=== PATIENT | male | born 2000 | race American Indian/Alaskan Native ===

== ENCOUNTER 2021-11-04 17:19 | Emergency (ER) | payer OTHER ==
[2021-11-04 17:44] VITALS: BP 125/69
[2021-11-04] MEDS ORDERED: IBUPROFEN 800 MG TAB PO ONE (18:00)
--- NOTE | 2021-11-04 18:08 | Emergency Department Report ---
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 Pain described as sharp exacerbated by movement and deep inspiration. There is no fevers no chills no nausea no vomiting no shortness of breath no wheezing or stridor. Patient does not have other history no cardiac history no hypertension. Patient denies smoking. Patient rates symptoms at 5/10 at this time. MD Complaint: chest pain Severity scale (0 -10): 4 - Related Data Allergies Allergy/AdvReac Type Severity Reaction Status Date / Time No Known Allergies Allergy Unverified 11/04/21 17:42 ED Review of Systems ROS: Stated complaint: CHEST PAIN Other details as noted in HPI ED Physical Exam - General Limitations: No Limitations ED Course Vital Signs 11/04/21 17:42 Temperature 98.4 F Pulse Rate 51 L Respiratory 18 Rate Blood Pressure 125/69 [Right] O2 Sat by Pulse 98 Oximetry Critical care attestation.: If time is entered above; I have spent that time in minutes in the direct care of this critically ill patient, excluding procedure time. ED Disposition Condition: Stable
--- NOTE | 2021-11-04 18:09 | Emergency Department Report ---
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 Pain described as sharp exacerbated by movement and deep inspiration. There is no fevers no chills no nausea no vomiting no shortness of breath no wheezing or stridor. Patient does not have other history no cardiac history no hypertension. Patient denies smoking. Patient rates symptoms at 5/10 at this time. Severity scale (0 -10): 4 - Related Data Previous Rx's Medication Instructions Recorded Last Taken Type Ibuprofen [Motrin 800 MG tab] 800 mg PO Q8HR PRN #30 tablet 11/04/21 Unknown Rx Allergies Allergy/AdvReac Type Severity Reaction Status Date / Time No Known Allergies Allergy Unverified 11/04/21 17:42 ED Review of Systems ROS: Stated complaint: CHEST PAIN Other details as noted in HPI Constitutional: denies: chills, fever, malaise Eyes: denies: eye pain, eye discharge, vision change ENT: as per HPI Respiratory: denies: cough, shortness of breath, wheezing Cardiovascular: chest pain. denies: palpitations, dyspnea on exertion, syncope, paroxysmal nocturnal dyspnea Endocrine: no symptoms reported Gastrointestinal: denies: abdominal pain, nausea, vomiting, diarrhea Genitourinary: denies: urgency, dysuria Musculoskeletal: denies: back pain, joint swelling, arthralgia Skin: denies: rash, lesions Neurological: denies: headache, weakness, paresthesias, vertigo Psychiatric: denies: anxiety, depression Hematological/Lymphatic: denies: easy bleeding, easy bruising ED Past Medical Hx - Medications Home Medications: Home Medications Medication Instructions Recorded Confirmed Last Taken Type Ibuprofen [Motrin 800 MG tab] 800 mg PO Q8HR PRN #30 tablet 11/04/21 Unknown Rx ED Physical Exam - General Limitations: No Limitations General appearance: alert, in no apparent distress - Head Head exam: Present: normal inspection - Eye Eye exam: Present: PERRL, EOMI. Absent: conjunctival injection, nystagmus Pupils: Present: normal accommodation - ENT ENT exam: Present: mucous membranes moist - Neck Neck exam: Present: normal inspection, full ROM. Absent: tenderness, lymphadenopathy - Respiratory Respiratory exam: Present: normal lung sounds bilaterally, chest wall tenderness (Left anterior lateral reproducible no crepitus no ecchymosis no step-off). Absent: respiratory distress, wheezes, rales, rhonchi, stridor - Cardiovascular Cardiovascular Exam: Present: regular rate, normal rhythm, normal heart sounds. Absent: systolic murmur, diastolic murmur, rubs, gallop - GI/Abdominal GI/Abdominal exam: Present: soft, normal bowel sounds. Absent: distended, tenderness, guarding, rebound, rigid, bruit, hernia - Rectal Rectal exam: Present: deferred - Extremities Exam Extremities exam: Present: normal inspection, full ROM, normal capillary refill - Back Exam Back exam: Present: normal inspection, full ROM. Absent: CVA tenderness (R), CVA tenderness (L) - Neurological Exam Neurological exam: Present: alert, oriented X3, CN II-XII intact, normal gait - Psychiatric Psychiatric exam: Present: normal affect, normal mood - Skin Skin exam: Present: warm, dry, intact, normal color. Absent: rash ED Course Vital Signs 11/04/21 17:42 Temperature 98.4 F Pulse Rate 51 L Respiratory 18 Rate Blood Pressure 125/69 [Right] O2 Sat by Pulse 98 Oximetry ED Medical Decision Making - EKG Data EKG shows normal: sinus rhythm, axis, intervals, QRS complexes Rate: normal - EKG Data When compared to previous EKG there are: previous EKG unavailable Interpretation: nonspecific ST-T wave jami (Sinus Bradycardia, mild ST elevation suggesing pericarditis, NSTEMI interp by ed attending.) - Radiology Data Radiology results: report reviewed, image reviewed CHEST 2 VIEWS INDICATION / CLINICAL INFORMATION: chest pain. FINDINGS: SUPPORT DEVICES: None. HEART / MEDIASTINUM: No significant abnormality. LUNGS / PLEURA: No significant pulmonary or pleural abnormality. No pneumothorax. ADDITIONAL FINDINGS: No significant additional findings. IMPRESSION: 1. No acute findings. Signer Name: Marco Tavarez MD Signed: 11/04/2021 6:34 PM Workstation Name: [id number] Transcribed By: Dictated By: Marco Tavarez MD Electronically Authenticated By: Marco Tavarez MD Signed Date/Time: 11/04/211833 DD/ 1834 TD/TT: Print - Medical Decision Making EKG sinus bradycardia mild ST elevation less than 0.4 suggestive of pericarditis, no ST elevated NC interpreted by ED attending, chest x-ray normal no infiltrates no opacities, vital signs are normal and there has been no fever no cough no chills no malaise. No shortness of breath. Pericarditis is not necessarily likely with this patient. Patient given ibuprofen in ED lung sounds are clear throughout there is no lift heaves no S3 or S4. There is no PND. There is no wheezing no stridor. There is no productive cough. Heart score will be 0T HELLEN score 0 pain is reproducible to deep palpation. 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 I have explained treatment plan NSAIDs, and follow-up with primary care doctor in 2 to 3 days. And when to return to ED. Patient verbal ized agreement and understanding with same. Critical care attestation.: If time is entered above; I have spent that time in minutes in the direct care of this critically ill patient, excluding procedure time. ED Disposition Clinical Impression: Nonspecific chest pain Disposition: 01 HOME / SELF CARE / HOMELESS Is pt being admited?: No Does the pt Need Aspirin: No Condition: Stable Instructions: Nonspecific Chest Pain, Adult Additional Instructions: Take medications as prescribed, follow-up with your doctor in 2 to 3 days. Return to emergency department should symptoms worsen. Prescriptions: Ibuprofen [Motrin 800 MG tab] 800 mg PO Q8HR PRN #30 tablet PRN Reason: pain Referrals: SHIKHA MORALES MD [Staff Physician] - 3-5 Days Forms: Work/School Release Form(ED) Time of Disposition: 19:57
--- NOTE | 2021-11-04 18:39 | XRay Report ---
CHEST 2 VIEWS INDICATION / CLINICAL INFORMATION: chest pain. FINDINGS: SUPPORT DEVICES: None. HEART / MEDIASTINUM: No significant abnormality. LUNGS / PLEURA: No significant pulmonary or pleural abnormality. No pneumothorax. ADDITIONAL FINDINGS: No significant additional findings. IMPRESSION: 1. No acute findings. Signer Name: Marco Tavarez MD Signed: 11/04/2021 6:34 PM Workstation Name: [id number]
--- NOTE | 2021-11-06 13:32 | Electrocardiograph Report ---
[facility] Test Date: 2021-11-04 Test Time: 17:50:06 Pat Name: YASH ORTIZ JR Department: Room: Gender: M Viscose [employer] Charge Hand: CLIFTON : 2000 Requested By: STEPHEN HILTON Order Number: [id number] Reading MD: Stephanie Self Measurements Intervals [place] Rate: 49 P: 31 GA: 147 QRS: 65 QRSD: 93 T: 57 QT: 408 QTc: 369 Interpretive Statements Sinus bradycardia Early repolarization ST changes No previous ECG available for comparison Electronically Signed On 11-06-2021 13:31:53 EDT by Stephanie Self
== END 2021-11-04 20:00 | disposition home or self-care (01) ==
LOC: ED 17:19
DX: R07.9 Chest pain, unspecified (principal)
CPT/HCPCS: 71046; 93005; 99283